=== PATIENT | male | born 1960 | race Caucasian/White ===

== ENCOUNTER 2017-09-30 11:51 | Observation (INO) | payer BC, OTHER ==
[2017-09-30] MEDS ORDERED: NORMAL SALINE 1000 ML 1,000 ML IV ONE ×2 (12:12→12:54)
[2017-09-30 12:20] LABS: ABSOLUTE BASOPHILS # (AUTO) 0.1 10^3/uL (0.0-0.2); ABSOLUTE EOSINOPHILS # (AUTO) 0.1 10^3/uL (0.0-0.6); ABSOLUTE LYMPHOCYTES (AUTO) 1.4 10^3/uL (0.5-4.7); ABSOLUTE MONOCYTES (AUTO) 1.2 10^3/uL (0.1-1.4); ABSOLUTE NEUT (AUTO) 4.9 10^3/uL (1.7-8.2); BASOPHILS % (AUTO) 0.7 % (0-2); EOSINOPHILS % (AUTO) 1.9 % (0-6); HEMATOCRIT 42.6 % (37.9-51.0); HEMOGLOBIN 14.3 g/dL (13.5-17.0); LYMPHOCYTES % (AUTO) 17.7 % (13-45); MEAN CORPUSCULAR HEMOGLOBIN 29.1 pg (27.0-33.4); MEAN CORPUSCULAR HGB CONC 33.7 g/dL (32.0-36.0); MEAN CORPUSCULAR VOLUME 87 fl (80-97); MONOCYTES % (AUTO) 15.8 % (3-13); PLATELET COUNT 279 10^3/uL (150-450); RED BLOOD COUNT 4.92 10^6/uL (4.35-5.55); RED CELL DISTRIBUTION WIDTH 13.4 % (11.5-14.0); SEGMENTED NEUTROPHILS % (AUTO) 63.9 % (42-78); TOTAL CELLS COUNTED % (AUTO) 100 %; WHITE BLOOD COUNT 7.7 10^3/uL (4.0-10.5)
--- NOTE | 2017-09-30 12:24 | ER Document Report ---
ED Cardiac - General Stated Complaint: HEART ISSUES Time Seen by Provider: 09/30/17 11:58 Notes: 57-year-old male has not felt well for approximately 2 weeks. States that he went to the doctor this morning. Heart rate was elevated. EMS was called. By report from EMS heart rate was in the 170s. Medical direction was given to give a 6 mg of adenosine followed by 12 mg of adenosine for possible SVT. This did not change his heart rate at all. Patient states that he cannot lay flat. Has not felt well for approximately 2 months. Intermittent fevers. TRAVEL OUTSIDE OF THE [place] IN LAST 30 DAYS: No - HPI Patient complains to provider of: Chest tightness, Palpitations, Shortness of breath Use of: denies: Alcohol, Amphetamines, Bath salts, Caffeine, Cocaine, Decongestants, Other Was the onset of pain: Gradual Quality of pain: None Severity now: Moderate Severity at worst: Moderate Pain level currently: 0 - Related Data Allergies/Adverse Reactions: No Known Allergies Allergy (Unverified 09/30/17 12:17) Home Medications: Current Home Medications Fenofibrate 160 mg PO QHS 09/30/17 [History] Telmisartan/Hydrochlorothiazid [Telmisartan-Hctz 80-25 mg Tab] 1 tab PO DAILY [History] Past Medical History - General Information source: Patient - Social History Smoking Status: Never Smoker Cigarette use (# per day): No Smoking Education Provided: No Frequency of alcohol use: None Drug Abuse: None Lives with: Spouse/Significant other Family History: Reviewed & Not Pertinent - Past Medical History Cardiac Medical History: Reports: None Pulmonary Medical History: Reports: None EENT Medical History: Reports: None Neurological Medical History: Reports: None Endocrine Medical History: Reports: None Renal/ Medical History: Reports: None Malignancy Medical History: Reports None GI Medical History: Reports: None Musculoskeltal Medical History: Reports None Skin Medical History: Reports None Psychiatric Medical History: Reports: None Traumatic Medical History: Reports: None Infectious Medical History: Reports: None Review of Systems - Review of Systems Constitutional: Fever, Malaise, Weakness EENT: No symptoms reported Cardiovascular: Palpitations, Heart racing, Dyspnea, Paroxysmal Nocturnal Dysp Respiratory: Cough, Short of breath Gastrointestinal: No symptoms reported Genitourinary: No symptoms reported Male Genitourinary: No symptoms reported Musculoskeletal: No symptoms reported Skin: No symptoms reported Hematologic/Lymphatic: No symptoms reported Neurological/Psychological: No symptoms reported Physical Exam - Vital signs Vitals: Resp Pulse Ox 20 98 09/30/17 12:02 09/30/17 12:02 Interpretation: Hypotensive, Tachycardic - General General appearance: Appears well, Alert - HEENT Head: Normocephalic, Atraumatic Eyes: Normal Pupils: PERRL - Respiratory Respiratory status: No respiratory distress Chest status: Nontender Breath sounds: Wheezing Chest palpation: Normal - Cardiovascular Rhythm: Tachycardia Heart sounds: Normal auscultation Murmur: No - Abdominal Inspection: Normal Distension: No distension Bowel sounds: Normal Tenderness: Nontender Organomegaly: No organomegaly - Back Back: Normal, Nontender - Extremities General upper extremity: Normal inspection, Nontender, Normal color, Normal ROM , Normal temperature General lower extremity: Normal inspection, Nontender, Normal color, Normal ROM , Normal temperature, Normal weight bearing. No: Edema, Nicolle's sign - Neurological Neuro grossly intact: Yes Cognition: Normal Orientation: AAOx4 Panda Coma Scale Eye Opening: Spontaneous [place] Coma Scale Verbal: Oriented Panda Coma Scale Motor: Obeys Commands [place] Coma Scale Total: 15 Speech: Normal Motor strength normal: LUE, RUE, LLE, RLE Sensory: Normal - Psychological Associated symptoms: Normal affect, Normal mood - Skin Skin Temperature: Warm Skin Moisture: Dry Skin Color: Normal Course - Re-evaluation Re-evalutation: 09/30/17 16:55 CT angiogram done to rule out pulmonary embolism. That was unremarkable. Prior to going to CT scan 10 mg of diltiazem bolus was given. Heart rate came down to about 135. When he arrived back from CT scan patient was in normal sinus rhythm with a heart rate in the 80s. Frequent PVCs. Patient still complains of some mild shortness of breath. Cardiac troponin is slightly elevated at 0.05. At this time we will consult hospitalist for admission for repeat cardiac labs, telemetry observation, echocardiogram and possible stress test. Patient is comfortable with this plan. - Vital Signs Vital signs: Temp Pulse Resp BP Pulse Ox 21 H 121/57 L 93 09/30/17 15:01 09/30/17 15:01 09/30/17 15:01 - Laboratory Result Diagrams: 09/30/17 12:00 09/30/17 12:00 Laboratory results interpreted by me: 09/30/17 09/30/17 12:00 12:00 Monocytes % 15.8 H Chloride 109 H Creatinine 1.57 H Est GFR ( Amer) 55 L Est GFR (Non-Af Amer) 46 L Glucose 119 H Total Protein 6.1 L - EKG Interpretation by Me EKG shows normal: [place], Intervals, QRS Complexes. abnormal: ST-T Waves - T- wave inversion in lead III no prior EKGs for comparison Rate: Tachycardia Critical Care Note - Critical Care Note Total time excluding time spent on procedures (mins): 60 Discharge - Discharge Clinical Impression: Atrial fibrillation with rapid ventricular response Condition: Good Disposition: ADMITTED INPATIENT Admitting Provider: Hospitalist Unit Admitted: Telemetry - Dr. Turpin
[2017-09-30 12:38] LABS: A TYPE INFLUENZA AG NEGATIVE (NEGATIVE); B INFLUENZA AG NEGATIVE (NEGATIVE)
[2017-09-30 12:43] LABS: ALANINE AMINOTRANSFERASE 44 U/L (21-72); ALBUMIN 3.9 g/dL (3.5-5.0); ALKALINE PHOSPHATASE 45 U/L (38-126); ANION GAP 13 (5-19); ASPARTATE AMINO TRANSFERASE 33 U/L (17-59); BILIRUBIN,DIRECT 0.3 mg/dL (0.0-0.4); BILIRUBIN,TOTAL 0.4 mg/dL (0.2-1.3); BLOOD UREA NITROGEN 19 mg/dL (7-20); CALCIUM 9.7 mg/dL (8.4-10.2); CARBON DIOXIDE 23 mmol/L (22-30); CHLORIDE 109 mmol/L (98-107); CREATINE KINASE 107 U/L (55-170); GLUCOSE 119 mg/dL (75-110); POTASSIUM 3.7 mmol/L (3.6-5.0); SODIUM 144.7 mmol/L (137-145); TOTAL PROTEIN 6.1 g/dL (6.3-8.2)
--- NOTE | 2017-09-30 12:54 | RADIOLOGY REPORT (SQ) ---
EXAM DESCRIPTION: CHEST SINGLE VIEW COMPLETED DATE/TIME: 09/30/2017 12:21 pm REASON FOR STUDY: sob COMPARISON: None. EXAM PARAMETERS: NUMBER OF VIEWS: One view. TECHNIQUE: Single frontal radiographic view of the chest acquired. RADIATION DOSE: NA LIMITATIONS: low lung volumes, ekg leads over the chest FINDINGS: LUNGS AND PLEURA: No opacities, masses or pneumothorax. No pleural effusion. MEDIASTINUM AND HILAR STRUCTURES: No masses. Contour normal. HEART AND VASCULAR STRUCTURES: Heart normal in size. Normal vasculature. BONES: No acute findings. HARDWARE: None in the chest. OTHER: No other significant finding. IMPRESSION: NO ACUTE RADIOGRAPHIC FINDING IN THE CHEST. TECHNICAL DOCUMENTATION: JOB ID: [id number] [employer]- All Rights Reserved
[2017-09-30 12:55] LABS: CREATINE KINASE MB 1.11 ng/mL (<4.55)
[2017-09-30 12:59] LABS: TROPONIN I 0.052 ng/mL
[2017-09-30] MEDS ORDERED: DILTIAZEM HCL INJ 25 MG/5 ML VIAL IV ONE (13:04)
[2017-09-30 13:32] LABS: FREE T4 (FREE THYROXINE) 1.45 ng/dL (0.78-2.19)
[2017-09-30 13:45] LABS: THYROID STIMULATING HORMONE 1.12 uIU/mL (0.47-4.68)
--- NOTE | 2017-09-30 14:37 | RADIOLOGY REPORT (SQ) ---
EXAM DESCRIPTION: CTA CHEST COMPLETED DATE/TIME: 09/30/2017 2:10 pm REASON FOR STUDY: sob,tachycardia COMPARISON: Chest x-ray dated 09/30/2017 TECHNIQUE: CT scan of the chest performed using helical scanning technique with dynamic intravenous contrast injection. Images reviewed with lung, soft tissue and bone windows. Reconstructed coronal and sagittal MPR images reviewed. Additional 3 dimensional post-processing performed to develop Maximal Intensity Projection images (WA P). All images stored on PACS. All CT scanners at this facility use dose modulation, iterative reconstruction, and/or weight based d osing when appropriate to reduce radiation dose to as low as reasonably achievable (ALARA). [facility]: Dose Right [facility]: CareDose [facility]: Dose Right [facility]: Teradose 4D [facility]: [employer] CONTRAST TYPE AND DOSE: contrast/concentration: Isovue 370.00 mg/ml; Total Contrast Delivered: 74.0 ml; Total Saline Delivered: 100.0 ml Contrast bolus optimized for the pulmonary arteries. Not diagnostic for the aorta. RENAL FUNCTION: Creatinine 1.57 RADIATION DOSE: CT Rad equipment meets quality standard of care and radiation dose reduction techniq ues were employed. CTDIvol: 30.4 - 39.7 mGy. DLP: 1238 mGy-cm. . LIMITATIONS: None. FINDINGS: LUNGS AND PLEURA: No masses, infiltrates, pneumothorax. No pleural effusions. Pleural-ba sed calcifications are identified in the left lower hemithorax. AORTA AND GREAT VESSELS: No aneurysm. Contrast bolus not optimized for the aorta. HEART: No pericardial effusion. No significant coronary artery calcifications. PULMONARY ARTERIES: No emboli visualized in the main pulmonary arteries or the segmental branches. HILAR AND MEDIASTINAL STRUCTURES: There are multiple mildly enlarged and borderline enlarged mediasti nal and bilateral hilar lymph nodes. Calcified mediastinal, left hilar, and subcarinal lymph nodes a re identified. HARDWARE: None in the chest. UPPER ABDOMEN: No significant findings. Limited exam. THYROID AND OTHER SOFT TISSUES: No masses. No adenopathy. BONES: No acute or significant finding. 3D MIPS: Confirm above findings. OTHER: No other significant finding. IMPRESSION: No evidence for pulmonary embolic disease. No acute consolidations or pleural effusions . Old granulomatous disease. There are multiple mildly enlarged and borderline enlarged mediastinal and bilateral hilar lymph nodes. Other findings as noted above COMMENT: Quality ID # [id number]: Final reports with documentation of one or more dose reduction techniques (e.g., Automated exposure control, adjustment of the mA and/or kV according to patient size, use of iterative reconstruction technique) TECHNICAL DOCUMENTATION: JOB ID: [id number] [employer]- All Rights Reserved
--- NOTE | 2017-09-30 18:07 | PDOC H&P ---
History of Present Illness Admission Date/PCP: LINDA DELEON MD Patient complains of: lightheadness, cough History of Present Illness: ABAD MAYORGA is a 57 year old male with history of HTN and HLD who presents with two week history of generalized weakness and cough. Patient states that he was in his usual health when he developed fevers, chills, and productive cough. States that cough has been persistent, however over the last week has had difficulty bringing up sputum despite using OTC medications. Patient denies SOB , chest pain, or palpitations. Upon his 's persistence, he went to his PCP who noted that his HR was in the 160s and SBP in 90s. EMS was called. He was given adenosine * 2 doses without improvement in his HR. Upon coming to the ED, patient's HR remained in 160s. He was given 2L IVF with improvement in his BP. He also received Dilt 10mg IV with improvement in blood pressure, which has now stabilized to 70-80s. Due to tachycardia and reported SOB (to ED physician), CTA chest was obtained and negative for PE or acute infectious process. Notable admission labs were Cr 1.57 (patient does not have known renal disease), Trop 0.52, and negative rapid flu. TSH/T4 wnl. EKG showed NSR with bigeminy. Patient admitted to hospitalist service for further work up. Past Medical History Cardiac Medical History: Reports: Hyperlipidema, Hypertension Pulmonary Medical History: Reports: None EENT Medical History: Reports: None Neurological Medical History: Reports: None Endocrine Medical History: Reports: None Renal/ Medical History: Reports: None Malignancy Medical History: Reports: None GI Medical History: Reports: None Musculoskeltal Medical History: Reports: None Skin Medical History: Reports: None Psychiatric Medical History: Reports: None Traumatic Medical History: Reports: None Infectious Medical History: Reports: None Past Surgical History Past Surgical History: Reports: None Social History Lives with: Spouse/Significant other Smoking Status: Never Smoker Drugs: None Family History Family History: Reviewed & Not Pertinent, Other - Father: CHF, Mother: AVR Parental Family History Reviewed: Yes Children Family History Reviewed: NA Sibling(s) Family History Reviewed.: NA Medication/Allergy Home Medications: Fenofibrate 160 mg PO QHS 09/30/17 Telmisartan/Hydrochlorothiazid [Telmisartan-Hctz 80-25 mg Tab] 1 tab PO DAILY Allergies/Adverse Reactions: No Known Allergies Allergy (Unverified 09/30/17 12:17) Review of Systems All systems: reviewed and no additional remarkable complaints except as stated - per HPI. Physical Exam Vital Signs: Temp Pulse Resp BP Pulse Ox 21 H 121/57 L 93 09/30/17 15:01 09/30/17 15:01 09/30/17 15:01 General appearance: PRESENT: well-developed, well-nourished, other - Mild discomfort, lying down in bed Head exam: PRESENT: atraumatic, normocephalic Mouth exam: PRESENT: moist Neck exam: ABSENT: JVD, thyromegaly Respiratory exam: PRESENT: unlabored, wheezes Cardiovascular exam: PRESENT: irregular rhythm. ABSENT: systolic murmur Vascular exam: PRESENT: normal capillary refill GI/Abdominal exam: PRESENT: normal bowel sounds, soft. ABSENT: tenderness Neurological exam: PRESENT: alert, awake, CN II-XII grossly intact Psychiatric exam: PRESENT: appropriate affect Skin exam: PRESENT: dry Results Laboratory Results: 09/30/17 12:00 09/30/17 12:00 09/30/17 09/30/17 09/30/17 12:00 12:00 12:00 WBC 7.7 RBC 4.92 Hgb 14.3 Hct 42.6 MCV 87 MCH 29.1 MCHC 33.7 RDW 13.4 Plt Count 279 Seg Neutrophils % 63.9 Lymphocytes % 17.7 Monocytes % 15.8 H Eosinophils % 1.9 Basophils % 0.7 Absolute Neutrophils 4.9 Absolute Lymphocytes 1.4 Absolute Monocytes 1.2 Absolute Eosinophils 0.1 Absolute Basophils 0.1 Sodium 144.7 Potassium 3.7 Chloride 109 H Carbon Dioxide 23 Anion Gap 13 BUN 19 Creatinine 1.57 H Est GFR ( Amer) 55 L Est GFR (Non-Af Amer) 46 L Glucose 119 H Calcium 9.7 Total Bilirubin 0.4 AST 33 ALT 44 Alkaline Phosphatase 45 Total Protein 6.1 L Albumin 3.9 TSH 1.12 Free T4 1.45 09/30/17 09/30/17 12:00 12:00 Creatine Kinase 107 CK-MB (CK-2) 1.11 Troponin I 0.052 NT-Pro-B Natriuret Pep 739 Impressions: Chest X-Ray 09/30/17 12:11 IMPRESSION: NO ACUTE RADIOGRAPHIC FINDING IN THE CHEST. Chest/Abdomen CTA 09/30/17 12:58 IMPRESSION: No evidence for pulmonary embolic disease. No acute consolidations or pleural effusions. Old granulomatous disease. There are multiple mildly enlarged and borderline enlarged mediastinal and bilateral hilar lymph nodes. Other findings as noted above Assessment & Plan - Diagnosis (1) Tachycardia Is this a current diagnosis for this admission?: Yes Plan: Presented with tachycardia. DD includes Afib vs SVT. Improved with IVF and 10mg IV Dilt. Electrolytes and thyroid studies WNL - Will admit for observation - TTE ordered for AM - Started metoprolol 12.5mg BID PO - If this is Afib, CHADSVASC score is 1. Low-moderate risk for stroke. Will start ASA 81mg daily. No role for anticoagulation. (2) MARIELLE (acute kidney injury) Is this a current diagnosis for this admission?: Yes Plan: Likely pre-renal. No history of kidney disease - Will give IVF - Will continue to monitor, check BMP in AM - No additional work up in AM (3) Cough Is this a current diagnosis for this admission?: Yes Plan: LIkely viral in etiology. - Duonebs ordered (4) Elevated troponin Is this a current diagnosis for this admission?: Yes Plan: Mild elevation at admission labs. Trop 0.052. Denies chest pain, no EKG changes. Likely demand from tachycardia - Will trend trops to ensure that trop is down - Repeat EKG in AM if necessary (5) Granulomatous disease, chronic Is this a current diagnosis for this admission?: Yes Plan: Seen on CTA at admission. No known history. Given report this may represent sarcoidosis. Will evaluate further in future. Cough/respiratory symptoms may be secondary to sarcoid flair. - Time Time Spent: 50 to 70 Minutes Critical Time spent with patient: Less than 15 minutes Anticipated discharge: Home Within: within 24 hours
--- NOTE | 2017-09-30 18:40 | EKG REPORT ---
SEVERITY:- ABNORMAL ECG - SINUS RHYTHM IVCD EARLY TRANSITION, NEED TO R/O OLD TRUE POST AL : Confirmed by: Otto Rojas MD 30-Sep-2017 18:39:46
--- NOTE | 2017-09-30 18:40 | EKG REPORT ---
SEVERITY:- ABNORMAL ECG - SINUS TACHYCARDIA NONSPECIFIC INTRAVENTRICULAR CONDUCTION DELAY MINIMAL ST DEPRESSION, INFERIOR LEADS : Confirmed by: Otto Rojas MD 30-Sep-2017 18:40:06
[2017-09-30] MEDS: IPRATROPIUM/ALBUTEROL 0.5-2.5 MG/3 ML AMPUL NEB SCH (20:09)
[2017-09-30] MEDS: METOPROLOL TARTRATE 25 MG TABLET PO SCH (20:46)
[2017-09-30] MEDS: DILTIAZEM HCL INJ 25 MG/5 ML VIAL IV PRN (21:12)
[2017-09-30] MEDS ORDERED: HEPARIN SOD (PORCINE) 1,000 UNIT/ML 10 ML VIAL IV ONE (21:37)
[2017-09-30] MEDS ORDERED: HEPARIN SODIUM,PORCINE/D5W 25,000 UNIT/250 ML RTUINJ IV PRN (21:37)
[2017-09-30] MEDS ORDERED: FENOFIBRATE NANOCRYSTALLIZED 145 MG TABLET PO SCH (22:00)
[2017-09-30 22:06] LABS: ABSOLUTE BASOPHILS # (AUTO) 0.1 10^3/uL (0.0-0.2); ABSOLUTE EOSINOPHILS # (AUTO) 0.2 10^3/uL (0.0-0.6); ABSOLUTE LYMPHOCYTES (AUTO) 1.6 10^3/uL (0.5-4.7); ABSOLUTE MONOCYTES (AUTO) 0.8 10^3/uL (0.1-1.4); EOSINOPHILS % (AUTO) 2.7 % (0-6); HEMATOCRIT 39.5 % (37.9-51.0); HEMOGLOBIN 13.3 g/dL (13.5-17.0); LYMPHOCYTES % (AUTO) 28.6 % (13-45); MEAN CORPUSCULAR HEMOGLOBIN 28.9 pg (27.0-33.4); MEAN CORPUSCULAR HGB CONC 33.7 g/dL (32.0-36.0); MEAN CORPUSCULAR VOLUME 86 fl (80-97); MONOCYTES % (AUTO) 14.8 % (3-13); PLATELET COUNT 268 10^3/uL (150-450); RED CELL DISTRIBUTION WIDTH 13.5 % (11.5-14.0); SEGMENTED NEUTROPHILS % (AUTO) 52.9 % (42-78); TOTAL CELLS COUNTED % (AUTO) 100 %; WHITE BLOOD COUNT 5.7 10^3/uL (4.0-10.5)
[2017-09-30 22:13] LABS: INTERNATIONAL RATION (INR) 0.96; PROTHROMBIN TIME 13.4 SEC (11.4-15.4)
[2017-10-01] MEDS ORDERED: HEPARIN SOD (PORCINE) 1,000 UNIT/ML 10 ML VIAL IV PRN (00:38)
[2017-10-01] MEDS: IPRATROPIUM/ALBUTEROL 0.5-2.5 MG/3 ML AMPUL NEB SCH ×3 (01:49→14:08)
[2017-10-01] MEDS: DILTIAZEM HCL INJ 25 MG/5 ML VIAL IV PRN ×4 (02:09→18:37)
[2017-10-01 05:43] LABS: HEMOGLOBIN 13.5 g/dL (13.5-17.0); MEAN CORPUSCULAR HGB CONC 33.8 g/dL (32.0-36.0); MEAN CORPUSCULAR VOLUME 86 fl (80-97); PLATELET COUNT 273 10^3/uL (150-450); RED BLOOD COUNT 4.65 10^6/uL (4.35-5.55); RED CELL DISTRIBUTION WIDTH 13.7 % (11.5-14.0); WHITE BLOOD COUNT 5.5 10^3/uL (4.0-10.5)
[2017-10-01 06:04] LABS: ANION GAP 13 (5-19); BLOOD UREA NITROGEN 15 mg/dL (7-20); CALCIUM 9.6 mg/dL (8.4-10.2); CARBON DIOXIDE 23 mmol/L (22-30); CHLORIDE 109 mmol/L (98-107); GLUCOSE 107 mg/dL (75-110); MAGNESIUM 1.9 mg/dL (1.6-2.3); PHOSPHORUS 3.7 mg/dL (2.5-4.5); POTASSIUM 3.5 mmol/L (3.6-5.0); SODIUM 144.8 mmol/L (137-145)
[2017-10-01] MEDS: METOPROLOL TARTRATE 25 MG TABLET PO SCH ×2 (06:36→18:38)
[2017-10-01 09:37] LABS: APPEARANCE,URINE CLEAR; BILIRUBIN,URINE NEGATIVE (NEGATIVE); COLOR,URINE YELLOW; GLUCOSE, URINE NEGATIVE (NEGATIVE); KETONES,URINE NEGATIVE (NEGATIVE); LEUKOCYTE ESTERASE,URINE NEGATIVE (NEGATIVE); NITRITE,URINE NEGATIVE (NEGATIVE); PROTEIN,URINE NEGATIVE (NEGATIVE); URINE SPECIFIC GRAVITY 1.014; UROBILINOGEN,URINE NEGATIVE mg/dL (<2.0)
[2017-10-01] MEDS ORDERED: ENOXAPARIN SODIUM INJ 40 MG/0.4 ML DISP.SYRIN SUBCUT SCH (10:00)
[2017-10-01] MEDS ORDERED: PREDNISONE 20 MG TABLET PO SCH (12:00)
--- NOTE | 2017-10-01 17:42 | XCELERA REPORT ---
[address] [address] Transthoracic Echocardiogram Report Name: ABAD MAYORGA Age: 57 yrs Gender: Male : 1960 Patient Status: Inpatient Patient Location: [address] [place] [address] Study Date: 10/01/2017 02:57 PM Height: 71 in Weight: 233 lb BSA: 2.3 m2 Procedure: A complete two-dimensional transthoracic echocardiogram was performed (2D, M-mode, spectral and color flow Doppler). The study was technically difficult with many images being suboptimal in quality. Reason For Study: tachycardia, likey afib Ordering Physician: ROMEL TERRAZAS Performed By: Kinsey Tellez Interpretation Summary The left ventricular ejection fraction is normal. Doppler measurements suggest impaired left ventricular relaxation, which is associated with grade I/IV or mild diastolic dysfunction There is borderline concentric left ventricular hypertrophy. The left ventricle is grossly normal size. Not all wall segments were well visualized. The right ventricular systolic function is normal. The right ventricle is mildly dilated. The right atrium is borderline dilated. The left atrium is mildly dilated. There is a trace amount of mitral regurgitation There is no mitral valve stenosis. There is no aortic valve stenosis No aortic regurgitation is present. There is a trace or physiologic amount of tricuspid regurgitation Tricuspid regurgitation jet envelope not well defined to measure RV systolic pressure accurately. There is no pericardial effusion. MMode/2D Measurements & Calculations RVDd: 4.6 cm LVIDd: 5.7 cm FS: 37.4 % Ao root diam: 3.7 cm IVSd: 1.0 cm LVIDs: 3.6 cm EDV(Teich): 162.6 ml LVPWd: 1.00 cm ESV(Teich): 54.1 ml Ao root area: 11.0 cm2 EF(Teich): 66.7 % LA dimension: 4.1 cm Doppler Measurements & Calculations MV E max elza: MV P1/2t max elza: Ao V2 max: LV V1 max P.0 cm/sec 114.0 cm/sec 136.4 cm/sec 10.2 mmHg MV A max elza: MV P1/2t: 63.2 msec Ao max PG: LV V1 max: 92.3 cm/sec 7.4 mmHg 159.8 cm/sec MV E/A: 1.2 MVA(P1/2t): 3.5 cm2 MV dec slope: 528.0 cm/sec2 MV dec time: 0.21 sec PA V2 max: TR max elza: 128.3 cm/sec 247.0 cm/sec PA max PG: TR max P.4 mmHg 6.6 mmHg Left Ventricle The left ventricle is grossly normal size. There is borderline concentric left ventricular hypertrophy. The left ventricular ejection fraction is normal. Doppler measurements suggest impaired left ventricular relaxation, which is associated with grade I/IV or mild diastolic dysfunction. Not all wall segments were well visualized. Right Ventricle The right ventricle is mildly dilated. There is normal right ventricular wall thickness. The right ventricular systolic function is normal. Atria The right atrium is borderline dilated. The left atrium is mildly dilated. Interarterial septum not well visualized and not well dopplered. Cannot comment on ASD/PFO presence. Mitral Valve The mitral valve is grossly normal. There is no mitral valve stenosis. There is a trace amount of mitral regurgitation. Aortic Valve The aortic valve is grossly normal. There is no aortic valve stenosis. No aortic regurgitation is present. Tricuspid Valve The tricuspid valve is not well visualized, but is grossly normal. There is no tricuspid stenosis. There is a trace or physiologic amount of tricuspid regurgitation. Tricuspid regurgitation jet envelope not well defined to measure RV systolic pressure accurately. Pulmonic Valve The pulmonic valve is not well visualized. Great Vessels The aortic root is not well visualized but is probably normal size. The inferior vena cava was not well visualized. Effusions There is no pericardial effusion. : ROMEL TERRAZAS > Luciano Gonzales
[2017-10-01 18:00] VITALS: BP 144/79
--- NOTE | 2017-10-01 20:23 | PDOC DISCHARGE SUMMARY ---
General - Admit/Disc Date/PCP Admission Date/Primary Care Provider: 09/30/17 17:42 LINDA DELEON MD Discharge Date: 10/01/17 - Discharge Diagnosis (1) Atrial fibrillation with rapid ventricular response Is this a current diagnosis for this admission?: Yes Summary: Presented with tachycardia. DD includes Afib vs SVT. In ED received IVF and 10mg IV Dilt with improvement in HR. While diagnosis is not clear cut Atrial fibrillation, this is most likely. - Work up included: electrolytes and thyroid studies WNL - TTE 10/01/17: preserved EF, borderline LVH, dilated left atrium, right atrium and right ventricle. Plan at discharge: - Script given for metoprolol 25mg BID PO for rate control - CHADSVASC score is 1. Low-moderate risk for stroke. Will start ASA 81mg daily. No role for anticoagulation. (2) Granulomatous disease, chronic Is this a current diagnosis for this admission?: Yes Summary: Seen on CTA at admission. Per further discussion with patient, states that he "thinks" they evaluated him for sarcoid when he was 16. Not sure what work up was done however no further follow up was done. Also of note, he has respiratory flair one year ago which improved with 5 day course of steroids. Family history significant for sister with SLE. Unclear diagnosis without biospy however this may be sarcoidosis with active flair - Work up while inpatient: Ca borderline elevated. Ordered CRP 23, MARCUS/ESR pending - Given prednisone 40mg PO daily on 10/01 with improvement in symptoms at time of discharge, continue 5 day course - Outpatient referral given for pulmonology. May benefit from biopsy which would give highest yield for diagnosis (3) MARIELLE (acute kidney injury) Is this a current diagnosis for this admission?: Yes Summary: Resolved. Likely pre-renal. No history of kidney disease (4) Elevated troponin Is this a current diagnosis for this admission?: Yes Summary: Mild elevation at admission labs with Trop 0.052. Denies chest pain, no EKG changes. repeat troponin was 0.211 and started on Heparin GTT by overnight physician - 3rd trop trended down to 0.157, Likely demand from tachycardia - Will trend trops to ensure that trop is down - Discontinued heparin, no role for AC, see above - Additional Information Resuscitation Status: Full Code Discharge Diet: Cardiac Discharge Activity: Activity As Tolerated Prescriptions: Metoprolol Tartrate [Lopressor 25 mg Tablet] 25 mg PO Q12A #60 tablet Prednisone [Deltasone 20 mg Tablet] 40 mg PO DAILY@1200 4 Days #8 tablet Home Medications: Aspirin [Aspirin EC] 81 mg PO DAILY 09/30/17 Fenofibrate 160 mg PO ACSUPPER 09/30/17 Metoprolol Tartrate [Lopressor 25 mg Tablet] 25 mg PO Q12A #60 tablet 10/01/17 Prednisone [Deltasone 20 mg Tablet] 40 mg PO DAILY@1200 4 Days #8 tablet History of Present Illness History of Present Illness: ABAD MAYORGA is a 57 year old male with history of HTN and HLD who presents with two week history of generalized weakness and cough. Patient states that he was in his usual health when he developed fevers, chills, and productive cough. States that cough has been persistent, however over the last week has had difficulty bringing up sputum despite using OTC medications. Patient denies SOB , chest pain, or palpitations. Upon his 's persistence, he went to his PCP who noted that his HR was in the 160s and SBP in 90s. EMS was called. He was given adenosine * 2 doses without improvement in his HR. Upon coming to the ED, patient's HR remained in 160s. He was given 2L IVF with improvement in his BP. He also received Dilt 10mg IV with improvement in blood pressure, which has now stabilized to 70-80s. Due to tachycardia and reported SOB (to ED physician), CTA chest was obtained and negative for PE or acute infectious process. Notable admission labs were Cr 1.57 (patient does not have known renal disease), Trop 0.52, and negative rapid flu. TSH/T4 wnl. EKG showed NSR with bigeminy. Patient admitted to hospitalist service for further work up. Hospital Course Hospital Course: Per above. Physical Exam Vital Signs: Temp Pulse Resp BP Pulse Ox 98.7 F 93 18 144/79 H 98 10/01/17 18:42 10/01/17 18:42 10/01/17 18:42 10/01/17 18:42 10/01/17 18:42 Intake & Output 09/30/17 10/01/17 10/02/17 06:59 06:59 06:59 Intake Total 30 1780 Balance 30 1780 Weight 105.9 kg General appearance: PRESENT: no acute distress, well-developed, well-nourished Head exam: PRESENT: normocephalic Mouth exam: PRESENT: moist Neck exam: ABSENT: carotid bruit, JVD Respiratory exam: PRESENT: clear to auscultation kayla, unlabored. ABSENT: wheezes Cardiovascular exam: PRESENT: RRR. ABSENT: tachycardia Vascular exam: PRESENT: normal capillary refill GI/Abdominal exam: PRESENT: soft. ABSENT: tenderness Extremities exam: ABSENT: pedal edema Musculoskeletal exam: PRESENT: full ROM Neurological exam: PRESENT: alert, awake, CN II-XII grossly intact Psychiatric exam: PRESENT: appropriate affect Results Laboratory Results: 10/01/17 04:59 10/01/17 04:59 09/30/17 10/01/17 10/01/17 22:00 04:59 04:59 WBC 5.7 5.5 RBC 4.60 4.65 Hgb 13.3 L 13.5 Hct 39.5 40.0 MCV 86 86 MCH 28.9 29.0 MCHC 33.7 33.8 RDW 13.5 13.7 Plt Count 268 273 Seg Neutrophils % 52.9 Lymphocytes % 28.6 Monocytes % 14.8 H Eosinophils % 2.7 Basophils % 1.0 Absolute Neutrophils 3.0 Absolute Lymphocytes 1.6 Absolute Monocytes 0.8 Absolute Eosinophils 0.2 Absolute Basophils 0.1 Sodium 144.8 Potassium 3.5 L Chloride 109 H Carbon Dioxide 23 Anion Gap 13 BUN 15 Creatinine 1.03 Est GFR ( Amer) > 60 Est GFR (Non-Af Amer) > 60 Glucose 107 Calcium 9.6 Phosphorus 3.7 Magnesium 1.9 C-Reactive Protein Urine Color Urine Appearance Urine pH Ur Specific [place] Urine Protein Urine Glucose (UA) Urine Ketones Urine Blood Urine Nitrite Ur Leukocyte Esterase Urine WBC (Auto) Urine RBC (Auto) 10/01/17 10/01/17 04:59 09:00 WBC RBC Hgb Hct MCV MCH MCHC RDW Plt Count Seg Neutrophils % Lymphocytes % Monocytes % Eosinophils % Basophils % Absolute Neutrophils Absolute Lymphocytes Absolute Monocytes Absolute Eosinophils Absolute Basophils Sodium Potassium Chloride Carbon Dioxide Anion Gap BUN Creatinine Est GFR ( Amer) Est GFR (Non-Af Amer) Glucose Calcium Phosphorus Magnesium C-Reactive Protein 26.6 H Urine Color YELLOW Urine Appearance CLEAR Urine pH 7.0 Ur Specific [place] 1.014 Urine Protein NEGATIVE Urine Glucose (UA) NEGATIVE Urine Ketones NEGATIVE Urine Blood NEGATIVE Urine Nitrite NEGATIVE Ur Leukocyte Esterase NEGATIVE Urine WBC (Auto) 1 Urine RBC (Auto) 0 09/30/17 09/30/17 09/30/17 18:00 20:30 23:28 Troponin I 0.211 0.179 0.157 Impressions: Chest X-Ray 09/30/17 12:11 IMPRESSION: NO ACUTE RADIOGRAPHIC FINDING IN THE CHEST. Chest/Abdomen CTA 09/30/17 12:58 IMPRESSION: No evidence for pulmonary embolic disease. No acute consolidations or pleural effusions. Old granulomatous disease. There are multiple mildly enlarged and borderline enlarged mediastinal and bilateral hilar lymph nodes. Other findings as noted above Plan Time Spent: Less than 30 Minutes
[2017-10-02 12:37] LABS: ANTICHROMATIN AB <0.2 AI (0.0-0.9); CENTROMERE B AB <0.2 AI (0.0-0.9); JO-1 ANTIBODY (ANACOMP) <0.2 AI (0.0-0.9); RNP AB <0.2 AI (0.0-0.9); SCLERODERMA-70 ANTIBODIES <0.2 AI (0.0-0.9); SJOGREN'S ANTI-SS-B AB <0.2 AI (0.0-0.9); SJOGREN'S SS-A ANTIBODY <0.2 AI (0.0-0.9); SMITH AB ANA <0.2 AI (0.0-0.9)
[2017-10-03 06:13] LABS: DNA DOUBLE STRAND ANTIBODY ANA <1 IU/mL (0-9)
== END 2017-10-01 18:58 | disposition home or self-care (01) ==
LOC: ER 11:51 → INTOOBSV 17:42 → EH 17:42 → 5 19:05
PROVIDERS: ADMIT Emergency Medicine; ATTEND Emergency Medicine
PROC: 3E0F7GC Introduction of Other Therapeutic Substance into Respiratory Tract, Via Natural or Artificial Opening (ICD-10-PCS; principal; 2017-09-30)
DX: I48.91 Unspecified atrial fibrillation (principal); D71 Functional disorders of polymorphonuclear neutrophils; N17.9 Acute kidney failure, unspecified; R79.89 Other specified abnormal findings of blood chemistry; I10 Essential (primary) hypertension; E78.5 Hyperlipidemia, unspecified; Z79.899 Other long term (current) drug therapy; Z79.82 Long term (current) use of aspirin; R53.1 Weakness; R05 Cough; R50.9 Fever, unspecified; R06.2 Wheezing; I95.9 Hypotension, unspecified; Z82.49 Family history of ischemic heart disease and other diseases of the circulatory system
CPT/HCPCS: 93005; 99291; 96361; 96374; 36415 ×2; 84439; 82553; 82550; 83735; 84100; 84443; 85025; 85027; 85652; 85610; 85730 ×2; 86140; 80048; 80053; 81001; 84484; 85379; 87804; 86225; 86235 ×8; 83880; 93306; 71045; 71275; 93010; 94640 ×2; G0378 ×3; J1644 ×3; J3490 ×3; J7512; J7030; J7620 ×2

== ENCOUNTER 2017-10-10 16:17 | Emergency (ER) | payer BC ==
[2017-10-10] MEDS ORDERED: RINGERS SOLUTION,LACTATED 1,000 ML IV ONE (16:54)
[2017-10-10] MEDS ORDERED: ASPIRIN 81 MG TABLET, CHEWABLE PO ONE (16:54)
[2017-10-10 17:12] LABS: INTERNATIONAL RATION (INR) 0.93; PROTHROMBIN TIME 13.1 SEC (11.4-15.4)
--- NOTE | 2017-10-10 17:12 | ER Document Report ---
ED General - General Mode of Arrival: Ambulatory Information source: Patient TRAVEL OUTSIDE OF THE [place] IN LAST 30 DAYS: No <EDWIN CASSIDY - Last Filed: 10/10/17 23:19> <CINTHIA DEL ROSARIO - Last Filed: 10/10/17 23:19> - General Chief Complaint: Low Blood Pressure Stated Complaint: BLOOD PRESSURE ISSUES Time Seen by Provider: 10/10/17 16:36 Notes: Patient is a 57 year old male presenting to the emergency department accompanied by complaining of low blood pressure and increased heart rate. states that she could see that the patients heart was rapidly beating and she proceeded to measure his heart rate to find him tachycardic and his blood pressue low. Patient states that he could not feel that he was tachycardic. Patient denies any caffeine intake. Patient states that he has felt like this previously whenever he would eat spicy food. Patient also states he has recently had a cold but has not taken any OTC medications. states that the patient was recently diagnosed with Afib. (EDWIN CASSIDY) - Related Data Allergies/Adverse Reactions: No Known Allergies Allergy (Verified 10/10/17 16:19) Past Medical History - General Information source: Patient, Relative - Social History Smoking Status: Never Smoker Cigarette use (# per day): No Chew tobacco use (# tins/day): No Smoking Education Provided: No Frequency of alcohol use: None Drug Abuse: None Family History: Reviewed & Not Pertinent, Other - Father: CHF, Mother: AVR - Past Medical History Cardiac Medical History: Reports: Hx Hypercholesterolemia, Hx Hypertension <EDWIN CASSIDY - Last Filed: 10/10/17 23:19> Review of Systems - Review of Systems Constitutional: No symptoms reported EENT: No symptoms reported Cardiovascular: See HPI Respiratory: No symptoms reported Gastrointestinal: No symptoms reported Genitourinary: No symptoms reported Male Genitourinary: No symptoms reported Musculoskeletal: No symptoms reported Skin: No symptoms reported Hematologic/Lymphatic: No symptoms reported Neurological/Psychological: No symptoms reported -: Yes All other systems reviewed and negative <EDWIN CASSIDY - Last Filed: 10/10/17 23:19> Physical Exam <EDWIN CASSIDY - Last Filed: 10/10/17 23:19> <CINTHIA DEL ROSARIO - Last Filed: 10/10/17 23:19> - Vital signs Vitals: Temp Pulse Resp BP Pulse Ox 98.2 F 167 H 22 H 127/83 H 97 10/10/17 16:24 10/10/17 16:24 10/10/17 16:24 10/10/17 16:24 10/10/17 16:24 - Notes Notes: GENERAL: Alert, interacts well. No acute distress. HEAD: Normocephalic, atraumatic. EYES: Pupils equal, round, and reactive to light. Extraocular movements intact. ENT: Oral mucosa moist, tongue midline. NECK: Full range of motion. Supple. Trachea midline. LUNGS: Good oxygenation. Clear to auscultation bilaterally, no wheezes, rales, or rhonchi. No respiratory distress. HEART: Tachycardic, variable of 164-175. Regular. No murmurs, gallops, or rubs. ABDOMEN: Soft, non-tender. Non-distended. Bowel sounds present in all 4 quadrants. EXTREMITIES: Moves all 4 extremities spontaneously. No cyanosis. NEUROLOGICAL: Alert and oriented x3. Normal speech. PSYCH: Normal affect, normal mood. SKIN: Warm, dry, normal turgor. No rashes or lesions noted. (EDWIN CASSIDY) Course - Laboratory Result Diagrams: 10/10/17 16:38 10/10/17 16:38 <EDWIN CASSIDY - Last Filed: 10/10/17 23:19> - Laboratory Result Diagrams: 10/10/17 16:38 10/10/17 16:38 <CINTHIA DEL ROSARIO - Last Filed: 10/10/17 23:19> - Re-evaluation Re-evalutation: 10/10/17 20:01 CBC shows slight leukocytosis 11.7, coags normal, CMP supports dehydration with a CO2 of 21 and a creatinine 1.26, similar to the findings that he had when he was in the hospital just recently for this, cardiac enzymes negative, thyroid functions unremarkable, urine drug screen unremarkable, alcohol level undetectable. Chest x-ray unremarkable. On arrival patient was in SVT, this was shown on the EKG and the monitor, patient was converted by blowing into a 5 mL syringe for 10 seconds and then being laid down flat and having his feet raised in the air. This rapidly converted him from SVT into sinus rhythm with frequent PACs. He remained in this rhythm for the rest of his ER stay. He was hydrated using a liter of normal saline. I did review all the EKGs and tracings from his prior hospitalization and I did not see any evidence of atrial fibrillation. Discussed with patient the need for follow-up with cardiology and possibly a Holter monitor or event monitor. Patient was then discharged home with a syringe should he feel like trying the syringe truck at home. He is welcome to return to the emergency department at any time particularly if he does not convert on his own at home. He will follow-up with pulmonology for possible sarcoidosis that was suggested during his last hospital stay, he will also try Zantac should he continue having burning in his chest followed by burping which then resolves. Patient knows to avoid stimulants and triggers such as tobacco, caffeine, decongestants. (CINTHIA DEL ROSARIO) - Vital Signs Vital signs: Temp Pulse Resp BP Pulse Ox 98.2 F 167 H 18 139/90 H 95 10/10/17 16:24 10/10/17 16:24 10/10/17 20:54 10/10/17 20:54 10/10/17 20:54 - Laboratory Laboratory results interpreted by me: 10/10/17 10/10/17 16:38 16:38 WBC 11.7 H Chloride 111 H Carbon Dioxide 21 L Creatinine 1.26 H Est GFR (Non-Af Amer) 59 L Glucose 115 H Critical Care Note - Critical Care Note Total time excluding time spent on procedures (mins): 15 <CINTHIA DEL ROSARIO - Last Filed: 10/10/17 23:19> Discharge <EDWIN CASSIDY - Last Filed: 10/10/17 23:19> <CINTHIA DEL ROSARIO - Last Filed: 10/10/17 23:19> - Discharge Clinical Impression: Paroxysmal SVT (supraventricular tachycardia), Dehydration Condition: Stable Disposition: HOME, SELF-CARE Additional Instructions: Please avoid caffeine, cigarettes, alcohol. Avoid decongestants as well. Please use nasal saline rinses such as a NetiPot or NeilMed Sinus Rinses. You may use the Tessalon Perles or honey for cough. For the burning in her chest we did not find any sign of a heart attack. You could consider taking Zantac 75 mg twice a day. Prescriptions: Benzonatate [Tessalon Perles 100 mg Capsule] 100 mg PO Q8HP PRN #40 capsule PRN Reason: Referrals: LINDA DELEON MD [Primary Care Provider] - Follow up in 3-5 days Scribe Attestation: 10/10/17 23:19 I personally performed the services described in the documentation, reviewed and edited the documentation which was dictated to the scribe in my presence, and it accurately records my words and actions. (CINTHIA DEL ROSARIO) Scribe Documentation - Scribe Written by Rosalindae:: Iram Cho, 10/10/2017 17:15 acting as scribe for :: Areli <EDWIN CASSIDY - Last Filed: 10/10/17 23:19>
[2017-10-10 17:16] LABS: ABSOLUTE BASOPHILS # (AUTO) 0.1 10^3/uL (0.0-0.2); ABSOLUTE EOSINOPHILS # (AUTO) 0.3 10^3/uL (0.0-0.6); ABSOLUTE LYMPHOCYTES (AUTO) 3.7 10^3/uL (0.5-4.7); ABSOLUTE NEUT (AUTO) 6.6 10^3/uL (1.7-8.2); BASOPHILS % (AUTO) 0.6 % (0-2); EOSINOPHILS % (AUTO) 2.4 % (0-6); LYMPHOCYTES % (AUTO) 31.8 % (13-45); MEAN CORPUSCULAR HEMOGLOBIN 28.7 pg (27.0-33.4); MEAN CORPUSCULAR HGB CONC 33.3 g/dL (32.0-36.0); MEAN CORPUSCULAR VOLUME 86 fl (80-97); MONOCYTES % (AUTO) 8.6 % (3-13); PLATELET COUNT 355 10^3/uL (150-450); RED BLOOD COUNT 5.22 10^6/uL (4.35-5.55); RED CELL DISTRIBUTION WIDTH 13.9 % (11.5-14.0); SEGMENTED NEUTROPHILS % (AUTO) 56.6 % (42-78); TOTAL CELLS COUNTED % (AUTO) 100 %; WHITE BLOOD COUNT 11.7 10^3/uL (4.0-10.5)
[2017-10-10 17:24] LABS: ALANINE AMINOTRANSFERASE 34 U/L (21-72); ALBUMIN 4.4 g/dL (3.5-5.0); ALKALINE PHOSPHATASE 57 U/L (38-126); ANION GAP 11 (5-19); ASPARTATE AMINO TRANSFERASE 25 U/L (17-59); BILIRUBIN,DIRECT 0.3 mg/dL (0.0-0.4); BILIRUBIN,TOTAL 0.4 mg/dL (0.2-1.3); BLOOD UREA NITROGEN 17 mg/dL (7-20); CARBON DIOXIDE 21 mmol/L (22-30); CHLORIDE 111 mmol/L (98-107); CREATINE KINASE 76 U/L (55-170); GLUCOSE 115 mg/dL (75-110); POTASSIUM 4.2 mmol/L (3.6-5.0); SODIUM 143.2 mmol/L (137-145); TOTAL PROTEIN 6.8 g/dL (6.3-8.2)
[2017-10-10 17:31] LABS: ALCOHOL < 10 mg/dL (NONE DETECTED)
[2017-10-10 17:35] LABS: CREATINE KINASE MB 0.91 ng/mL (<4.55)
[2017-10-10 17:38] LABS: TROPONIN I < 0.012 ng/mL
[2017-10-10 17:41] LABS: FREE T3 4.34 pg/mL (2.77-5.27); FREE T4 (FREE THYROXINE) 1.4 ng/dL (0.78-2.19)
[2017-10-10 17:55] LABS: THYROID STIMULATING HORMONE 1.14 uIU/mL (0.47-4.68)
--- NOTE | 2017-10-10 18:06 | RADIOLOGY REPORT (SQ) ---
EXAM DESCRIPTION: CHEST SINGLE VIEW COMPLETED DATE/TIME: 10/10/2017 5:54 pm REASON FOR STUDY: SVT COMPARISON: 09/30/2017. EXAM PARAMETERS: NUMBER OF VIEWS: One view. TECHNIQUE: Single frontal radiographic view of the chest acquired. RADIATION DOSE: NA LIMITATIONS: None. FINDINGS: LUNGS AND PLEURA: No opacities, masses or pneumothorax. No pleural effusion. MEDIASTINUM AND HILAR STRUCTURES: No masses. Contour normal. HEART AND VASCULAR STRUCTURES: Heart normal in size. Normal vasculature. BONES: No acute findings. HARDWARE: None in the chest. OTHER: No other significant finding. IMPRESSION: NO ACUTE RADIOGRAPHIC FINDING IN THE CHEST. TECHNICAL DOCUMENTATION: JOB ID: [id number] [employer]- All Rights Reserved
[2017-10-10 18:38] LABS: URINE AMPHETAMINES SCREEN NEGATIVE; URINE BARBITURATES SCREEN NEGATIVE; URINE BENZODIAZEPINES SCREEN NEGATIVE; URINE COCAINE SCREEN NEGATIVE; URINE MARIJUANA (THC) SCREEN NEGATIVE; URINE METHADONE SCREEN NEGATIVE; URINE PHENCYCLIDINE SCREEN NEGATIVE
--- NOTE | 2017-10-10 19:39 | EKG REPORT ---
SEVERITY:- ABNORMAL ECG - SINUS TACHYCARDIA MULTIPLE VENTRICULAR PREMATURE COMPLEXES S1,S2,S3 PATTERN BORDERLINE T ABNORMALITIES, INFERIOR LEADS : Confirmed by: Luciano Gonzales 10-Oct-2017 19:39:00
--- NOTE | 2017-10-10 19:40 | EKG REPORT ---
SEVERITY:- ABNORMAL ECG - SUPRAVENTRICULAR TACHYCARDIA PROBABLE RIGHT VENTRICULAR HYPERTROPHY ST DEPRESSION, PROBABLY RATE RELATED : Confirmed by: Luciano Gonzales 10-Oct-2017 19:39:22
[2017-10-10 21:01] VITALS: BP 139/90
== END 2017-10-10 21:00 | disposition home or self-care (01) ==
LOC: ER 16:17
DX: I47.1 Supraventricular tachycardia (principal); E86.0 Dehydration; I95.9 Hypotension, unspecified
CPT/HCPCS: 93005; 99285; 96360; 36415; 84439; 82553; 80307 ×2; 82550; 84443; 85025; 85610; 80053; 84484; 84481; 71045; 93010; J7120

== ENCOUNTER → 2018-05-10 | Outpatient (CLI) | payer BC ==
[2018-05-10 10:57] LABS: ABSOLUTE EOSINOPHILS # (AUTO) 0.2 10^3/uL (0.0-0.6); ABSOLUTE LYMPHOCYTES (AUTO) 1.6 10^3/uL (0.5-4.7); ABSOLUTE MONOCYTES (AUTO) 0.4 10^3/uL (0.1-1.4); ABSOLUTE NEUT (AUTO) 2.4 10^3/uL (1.7-8.2); BASOPHILS % (AUTO) 0.9 % (0-2); EOSINOPHILS % (AUTO) 4.2 % (0-6); HEMATOCRIT 41.2 % (37.9-51.0); LYMPHOCYTES % (AUTO) 34.5 % (13-45); MEAN CORPUSCULAR HEMOGLOBIN 29.7 pg (27.0-33.4); MEAN CORPUSCULAR VOLUME 87 fl (80-97); MONOCYTES % (AUTO) 8.9 % (3-13); PLATELET COUNT 289 10^3/uL (150-450); RED BLOOD COUNT 4.72 10^6/uL (4.35-5.55); RED CELL DISTRIBUTION WIDTH 13.6 % (11.5-14.0); SEGMENTED NEUTROPHILS % (AUTO) 51.5 % (42-78); TOTAL CELLS COUNTED % (AUTO) 100 %; WHITE BLOOD COUNT 4.7 10^3/uL (4.0-10.5)
[2018-05-10 11:27] LABS: ALANINE AMINOTRANSFERASE 33 U/L (21-72); ALBUMIN 4.7 g/dL (3.5-5.0); ALKALINE PHOSPHATASE 51 U/L (38-126); ANION GAP 12 (5-19); ASPARTATE AMINO TRANSFERASE 31 U/L (17-59); BILIRUBIN,DIRECT 0.3 mg/dL (0.0-0.4); BILIRUBIN,TOTAL 0.5 mg/dL (0.2-1.3); BLOOD UREA NITROGEN 15 mg/dL (7-20); CARBON DIOXIDE 26 mmol/L (22-30); CHLORIDE 107 mmol/L (98-107); GLUCOSE 93 mg/dL (75-110); POTASSIUM 4.1 mmol/L (3.6-5.0); SODIUM 145.3 mmol/L (137-145); TOTAL PROTEIN 7.5 g/dL (6.3-8.2)
== END ==
LOC: OD 09:25
PROVIDERS: ATTEND Physician Assistant
DX: R59.0 Localized enlarged lymph nodes (principal)
CPT/HCPCS: 36415; 80053; 82164; 82306; 82340; 85025; 86698; 87449